=== PATIENT | male | born 1980 | race Caucasian/White ===

== ENCOUNTER 2016-06-04 14:10 | Inpatient (IN) | payer SELFPAY ==
[~2016-06-04] VITALS: Ht 170.2 cm; Wt 90.7 kg
[~2016-06-04 14:10] MED LIST: ALBU6.7H INH; ALD50 PO; AMLO10TA4 PO; ASPI-1035 PO; COR3 PO; FURO40TA2 PO; LISI-604 PO; PRED5TAB48 PO
[2016-06-04] MEDS ORDERED: NITROGLYCERIN OINT 1GM/INCH UDPKT TD STA (14:41)
[2016-06-04] MEDS ORDERED: FUROSEMIDE 40MG/4ML VIAL IV STA (14:41)
[2016-06-04 15:30] LABS: CLARITY URINE CLEAR (CLEAR); COLOR URINE YELLOW (YELLOW); GLUCOSE URINE NEGATIVE (NEGATIVE); KETONES URINE NEGATIVE (NEGATIVE); LEUKOCYTE ESTERASE URINE NEGATIVE (NEGATIVE); NITRITE URINE NEGATIVE (NEGATIVE); OCCULT BLOOD URINE NEGATIVE (NEGATIVE); PH URINE 5.5 (4.5-8.0); PROTEIN URINE 2+ (NEGATIVE); SPECIFIC GRAVITY URINE 1.012 (1.005-1.030)
[2016-06-04 15:33] LABS: BACTERIA URINE NONE SEEN; CALCIUM PHOSPHATE CRYSTALS UR NONE SEEN /lpf; RBC URINE NONE SEEN /hpf (0-2); SQUAMOUS EPITHELIAL CELL URINE NONE SEEN /lpf (RARE/1+); WAXY CASTS URINE NONE SEEN /lpf; WBC URINE NONE SEEN /hpf (0-2); YEAST URINE NONE SEEN
[2016-06-04 15:39] LABS: *AMPHETAMINES SCREEN URINE NEGATIVE (NEGATIVE); *BARBITURATES SCREEN URINE NEGATIVE (NEGATIVE); *BENZODIAZEPINES SCREEN URINE NEGATIVE (NEGATIVE); *COCAINE SCREEN URINE NEGATIVE (NEGATIVE); CANNABINOID URINE SCREEN NEGATIVE (NEGATIVE); ECSTASY MDMA SCREEN URINE NEGATIVE (NEGATIVE); METHADONE URINE SCREEN NEGATIVE (NEGATIVE); OPIATES URINE SCREEN NEGATIVE (NEGATIVE); PHENCYCLIDINE URINE SCREEN NEGATIVE (NEGATIVE)
[2016-06-04 15:58] LABS: BASOPHILS % 1.1 % (0.0-2.0); EOSINOPHILS % 1.3 % (0.0-5.0); HEMATOCRIT. 49.6 % (42.0-52.0); HEMOGLOBIN. 15.9 g/dL (14.0-18.0); LYMPHOCYTES % 27.1 % (20.0-50.0); MEAN CORPUSCULAR HEMOGLOBIN 28.7 pg (28.0-32.0); MEAN CORPUSCULAR VOLUME 89.6 fL (80.0-94.0); MEAN PLATELET VOLUME 8.5 fl (7.4-10.4); MONOCYTES % 13.2 % (2.0-8.0); NEUTROPHILS % 57.3 % (40.0-76.0); PLATELET 217 x1000/uL (130-400); RED BLOOD CELL COUNT 5.54 mill/uL (4.7-6.1); RED CELL DISTRIBUTION WIDTH 17.7 % (11.6-14.6); WHITE BLOOD COUNT 8.4 x1000/uL (4.5-11.0)
[2016-06-04 16:06] LABS: INR 1.1; PARTIAL THROMBOPLASTIN TIME 24.5 sec (24.0-34.0); PROTHROMBIN TIME 11.9 sec
[2016-06-04 16:15] LABS: ALANINE AMINOTRANSFERASE 46 IU/L (13-61); ANION GAP 6; CALCIUM 8.4 mg/dL (8.5-10.1); CARBON DIOXIDE 39 mEq/L (21-32); CHLORIDE 97 mEq/L (98-107); INDEX HEMOLYSI 1 (1-3); INDEX ICTERIC 1 (1-4); INDEX LIPEMIC 1 (1-3); NT PRO B-TYPE NATRIURETIC PEP 6484 pg/mL (5-125); UREA NITROGEN BLOOD 20 mg/dL (7-21); eGFR > 60 mL/min (>60)
[2016-06-04] MEDS ORDERED: CLONIDINE 0.1MG TABLET PO PRN (19:15)
[2016-06-04] MEDS ORDERED: DIPHENHYDRAMINE 50MG/ML VIAL IV PRN (19:15)
[2016-06-04] MEDS ORDERED: ACETAMINOPHEN 325MG TABLET PO PRN (19:15)
[2016-06-04] MEDS ORDERED: IPRATROPIUM/ALBUTEROL 0.5-3(2.5)MG/3ML NEB INH PRN (19:15)
[2016-06-04] MEDS ORDERED: DOCUSATE SODIUM 100MG CAPSULE PO PRN (19:15)
[2016-06-04] MEDS ORDERED: LORAZEPAM 2MG/ML CPJ IV PRN (19:15)
[2016-06-04] MEDS ORDERED: NITROGLYCERIN 0.4MG TABLET SL SL PRN (19:15)
[2016-06-04] MEDS ORDERED: MAGNESIUM/ALUMINUM HYDROXIDE/SIMETHICONE 30ML UDC PO PRN (19:15)
[2016-06-04] MEDS ORDERED: ONDANSETRON HCL 4MG/2ML VIAL IV PRN (19:15)
[2016-06-04] MEDS ORDERED: KETOROLAC 15MG/ML VIAL IV PRN (19:32)
[2016-06-04] MEDS ORDERED: NA PHOS,M-B/NA PHOS,DI-BA ENEMA 118ML PR PRN (20:00)
[2016-06-04] MEDS ORDERED: ZOLPIDEM TARTRATE 5MG TABLET PO PRN (20:00)
[2016-06-04] MEDS ORDERED: GUAIFENESIN/DM 600MG/30MG ER TAB 12HR PO NR (20:00)
[2016-06-04 21:10] VITALS: BP 151/112
[2016-06-04] MEDS: FUROSEMIDE 40MG/4ML VIAL IVP SCH (22:58)
[2016-06-04] MEDS: SPIRONOLACTONE 25MG TABLET PO SCH (22:58)
[2016-06-04 23:52] LABS: TROPONIN I 0.08 ng/mL (0.00-0.04)
[2016-06-05] VITALS: BP 125/85
[2016-06-05 04:00] VITALS: BP_SYST 141; BP_DIAS 103; BP_DIAS 86
[2016-06-05] MEDS ORDERED: CARVEDILOL 3.125 MG TABLET PO SCH (06:00)
[2016-06-05] MEDS: GUAIFENESIN 200MG/10ML SUGAR FREE UDC PO PRN ×2 (06:31→09:33)
[2016-06-05 07:21] LABS: CREATINE KINASE MB FRACTION 2.9 ng/mL (0.5-3.6); TROPONIN I 0.06 ng/mL (0.00-0.04)
[2016-06-05 08:00] VITALS: BP 120/87
[2016-06-05] MEDS: FUROSEMIDE 40MG/4ML VIAL IVP SCH (08:37)
[2016-06-05] MEDS: SPIRONOLACTONE 25MG TABLET PO SCH (08:38)
[2016-06-05] MEDS ORDERED: ENOXAPARIN 40MG/0.4ML SYR SUBCUT SCH (09:00)
[2016-06-05] MEDS ORDERED: PANTOPRAZOLE SODIUM 40 MG/VIAL IV SCH (09:00)
[2016-06-05] MEDS ORDERED: GUAIFENESIN/DM 600MG/30MG ER TAB 12HR PO SCH (09:00)
[2016-06-05] MEDS ORDERED: ASPIRIN 325MG EC TABLET PO SCH (09:00)
[2016-06-05 12:00] VITALS: BP 119/85
[2016-06-05 13:58] VITALS: BP 120/87
[2016-06-05] MEDS ORDERED: LISINOPRIL 20MG TABLET PO SCH (21:00)
== END 2016-06-05 12:15 | disposition home or self-care (01) | DRG 194 ==
LOC: ER 17:15 → 5WST 18:09
PROVIDERS: ADMIT Internal Medicine; ATTEND Internal Medicine
DX: I11.0 Hypertensive heart disease with heart failure (principal); J44.9 Chronic obstructive pulmonary disease, unspecified; I42.9 Cardiomyopathy, unspecified; F19.10 Other psychoactive substance abuse, uncomplicated; I50.43 Acute on chronic combined systolic (congestive) and diastolic (congestive) heart failure; Z87.891 Personal history of nicotine dependence
CPT/HCPCS: 36415; 71010; 80053; 80061; 80305; 81001; 82550; 82553; 83036; 83880; 84484; 85025; 85610; 85730; 93005; 93970; 96374; 99285; C9113; J1650; J1940